=== PATIENT | male | born 1980 | race Caucasian/White ===

== ENCOUNTER → 2016-11-29 | Outpatient (CLI) | payer BC ==
[~2016-11-29] MED LIST: CLEOCIN HCL300 MG PO; DAYPRO600 M1 PO; IBU800 MG PO; KEFLEX500 M1 PO; LEVOFLOXACIN500 MG PO; METFORMIN1000 MG PO; NORCO 5-325 TA1 EACH PO; Orphenadrine C100 MG PO; PERCOCET 325 MG1 TA2 PO; PREDNISONE10 MG PO; PRILOSEC40 M1 PO; SKELAXIN800 MG PO; VICODIN 5-3001 EACH PO
[2016-11-29 11:25] LABS: HEMOGLOBIN A1c 6.8 % (4.8-5.6)
[2016-11-29 11:40] LABS: ALBUMIN 4.3 gm/dl (3.1-4.5); ALKALINE PHOSPHATASE 65 U/L (45-117); BILIRUBIN, TOTAL 1.3 mg/dl (0.2-1.0); BUN 9 mg/dl (7-24); CARBON DIOXIDE 31 mmol/L (21-32); CHLORIDE 103 mmol/L (98-107); CHOLESTEROL 209 mg/dL (<200); CPK 452 U/L (39-308); EST GLOM FILT AFRICAN AMERICAN > 60 ml/min; GLUCOSE 153 mg/dL (65-99); HDL CHOLESTEROL 36 mg/dl (40-60); LDL CHOLESTEROL 117 mg/dL (9-159); POTASSIUM 4.3 mmol/L (3.5-5.1); SGOT/AST 58 IU/L (3-35); SGPT/ALT 95 U/L (12-78); SODIUM 139 mmol/L (136-145); TOTAL PROTEIN 7.6 gm/dL (6.4-8.2); TRIGLYCERIDES 281 mg/dl (<150); VLDL CHOLESTEROL 56 mg/dL (6-40)
== END | disposition home or self-care (01) ==
LOC: LAB 10:46
PROVIDERS: Family Medicine
DX: E78.00 Pure hypercholesterolemia, unspecified (principal); E11.9 Type 2 diabetes mellitus without complications; E55.9 Vitamin D deficiency, unspecified; M54.9 Dorsalgia, unspecified

== ENCOUNTER 2023-11-20 16:37 | Emergency (ER) | payer BC ==
[~2023-11-20] VITALS: Ht 172.7 cm; Wt 104.3 kg
[2023-11-20] MEDS ORDERED: Acetaminophen/Hydrocodone 5 MG/325 MG TABLET PO ONE (17:20)
[2023-11-20 17:39] LABS: BASO % 0.5 % (0.0-1.0); EOS # 0.2 10*3/uL (0.0-0.4); EOS % 2.3 % (1.0-4.0); LYMPH # 1.5 10*3/uL (1.3-4.4); LYMPH % 17.9 % (27.0-41.0); MEAN CELL VOLUME 84.3 fl (80.0-94.0); MEAN CORPUSCULAR HGB 29.2 pg (27.0-31.0); MEAN CORPUSCULAR HGB CONC 34.7 g/dl (33.0-37.0); MEAN PLATELET VOLUME 10.1 fl (9.6-12.3); MONO # 0.6 10*3/uL (0.1-1.0); MONO % 7.2 % (3.0-9.0); NEUT % 71.6 % (47.0-73.0); PLATELET COUNT AUTOMATED 177 10*3/uL (130-400); RED BLOOD COUNT 5.34 10*6/uL (4.50-5.90); WHITE BLOOD COUNT 8.3 10*3/uL (4.8-10.8)
[2023-11-20 17:53] LABS: BUN 12 mg/dl (9-23); CHLORIDE 104 mmol/L (98-107); POTASSIUM 4.4 mmol/L (3.4-5.1)
[2023-11-20] MEDS ORDERED: SODIUM CHLORIDE 0.9% 1,000 ML IV ONE (18:15)
[2023-11-20] MEDS ORDERED: INSULIN REGULAR, HUMAN 1 UNIT/0.01 ML IV ONE ×2 (18:15→20:00)
[2023-11-20] MEDS ORDERED: Ondansetron Hydrochloride 4 MG/2 ML VIAL IV ONE (20:05)
[2023-11-20] MEDS ORDERED: MORPHINE Sulfate 2 MG/ML SYR IV ONE (20:05)
[2023-11-20] MEDS ORDERED: HYDROCODONE-AC1 EAC1 PO (20:21)
[2023-11-20] MEDS ORDERED: METFORMIN HYDR500 MG PO (20:21)
== END 2023-11-20 20:40 | disposition home or self-care (01) ==
LOC: ED 16:37
PROVIDERS: Nurse Practitioner Family
DX: M51.27 Other intervertebral disc displacement, lumbosacral region (principal); K21.9 Gastro-esophageal reflux disease without esophagitis; E11.65 Type 2 diabetes mellitus with hyperglycemia; Z88.0 Allergy status to penicillin; Z88.2 Allergy status to sulfonamides; Z98.890 Other specified postprocedural states

== ENCOUNTER → 2024-07-06 | Outpatient (CLI) | payer BC ==
[~2024-07-06] MED LIST changes: +HYDROCODONE-AC1 EAC1 PO; +METFORMIN HYDR500 MG PO
== END | disposition home or self-care (01) ==
LOC: US 10:47
PROVIDERS: ATTEND Family Medicine
DX: K76.0 Fatty (change of) liver, not elsewhere classified (principal); E78.5 Hyperlipidemia, unspecified

== ENCOUNTER → 2025-08-24 | Outpatient (CLI) | payer BC ==
[2025-08-24 11:09] LABS: MEAN CELL VOLUME 83.7 fl (80.0-94.0); MEAN CORPUSCULAR HGB 29.3 pg (27.0-31.0); MEAN PLATELET VOLUME 10.1 fl (9.6-12.3); NUCLEATED RED BLOOD CELL 0.0 % (0.0-0.0); NUCLEATED RED BLOOD CELL 0.0 10*3/uL (0.0-0.0); PLATELET COUNT AUTOMATED 173.0 10*3/uL (130-400); RED CELL DISTRI WIDTH 13.0 % (0-14.5)
[2025-08-24 11:47] LABS: BUN 15 mg/dl (9-23); FREE T4 1.21 ng/dl (0.89-1.76); LDL CHOLESTEROL 147 mg/dL (9-159); SGPT/ALT 23 U/L (5-49)
[2025-08-24 12:31] LABS: VITAMIN D, 25-HYDROXY 63.8 ng/mL (30-100)
== END | disposition home or self-care (01) ==
LOC: LAB 10:53
PROVIDERS: ATTEND Family Medicine
DX: E55.9 Vitamin D deficiency, unspecified (principal); E78.00 Pure hypercholesterolemia, unspecified; G47.00 Insomnia, unspecified; G51.0 Bell's palsy